=== PATIENT | female | born 1965 | race American Indian/Alaskan Native ===

== ENCOUNTER 2016-11-08 18:03 | Emergency (ER) | payer SELFPAY ==
[2016-11-08] MEDS ORDERED: DECADRON ONE (18:25)
[2016-11-08] MEDS ORDERED: PEPCID IV ONE (18:25)
[2016-11-08] MEDS: PEPCID IV ONE (18:35)
[2016-11-08] MEDS: DECADRON IV ONE (18:35)
[2016-11-08 18:39] VITALS: BP 139/99
--- NOTE | 2016-11-08 19:32 | Emergency Department Report ---
ED General Adult HPI - General Chief complaint: Allergic Reaction Stated complaint: ALLERGIC REACTION Time Seen by Provider: 11/08/16 18:06 Source: patient Mode of arrival: Ambulatory Limitations: No Limitations - History of Present Illness Initial comments: Patient is a 51-year-old female that is taking lisinopril. She noted some swelling of lip. She took a selfie photograph which she showed me on a cell phone. This showed upper lip swelling which was mild to moderate only. She stated that she felt anxious and was afraid her throat will close off. She came to the emergency department. She actually had no dyspnea. She stated that her blood pressure went up. However on my encounter her blood pressure was slightly elevated only. She denies any other symptoms. She denies swelling of her neck or the back of her throat. She had no wheezing. -: hour(s) Location: mouth (upper lip only) Severity scale (0 -10): 0 Consistency: constant Improves with: none Worsens with: none Associated Symptoms: denies other symptoms Treatments Prior to Arrival: none - Related Data Home Medications Medication Instructions Recorded Confirmed Last Taken Cetirizine HCl [24Hour Allergy] 10 mg PO DAILY 11/08/16 11/08/16 11/08/16 Levothyroxine [Synthroid] 112 mcg PO QAM 11/08/16 11/08/16 11/08/16 Metformin HCl [Glucophage] 500 mg PO DAILY 11/08/16 11/08/16 11/08/16 Previous Rx's Medication Instructions Recorded Last Taken Type amLODIPine [Norvasc] 5 mg PO DAILY #30 tab 11/08/16 Unknown Rx Allergies Allergy/AdvReac Type Severity Reaction Status Date / Time lisinopril Allergy Angioedema Verified 11/08/16 18:09 nut - unspecified Allergy Unknown Verified 11/08/16 18:09 ED Review of Systems ROS: Stated complaint: ALLERGIC REACTION Other details as noted in HPI Constitutional: denies: chills, fever Eyes: denies: eye pain, eye discharge, vision change ENT: denies: ear pain, throat pain Respiratory: denies: cough, shortness of breath, wheezing Cardiovascular: denies: chest pain, palpitations Endocrine: no symptoms reported Gastrointestinal: denies: abdominal pain, nausea, diarrhea Genitourinary: denies: urgency, dysuria, discharge Musculoskeletal: denies: back pain, joint swelling, arthralgia Skin: denies: rash, lesions Neurological: denies: headache, weakness, paresthesias Psychiatric: denies: anxiety, depression Hematological/Lymphatic: denies: easy bleeding, easy bruising ED Past Medical Hx - Past Medical History Previous Medical History?: Yes Hx Hypertension: Yes Hx of Cancer: Yes (breast, no active tx) - Surgical History Past Surgical History?: Yes Hx Cholecystectomy: Yes Additional Surgical History: hysterectomy. lump removed from left breast. tonsillectomy - Social History Smoking Status: Current Every Day Smoker Substance Use Type: Alcohol, Marijuana - Medications Home Medications: Home Medications Medication Instructions Recorded Confirmed Last Taken Type Cetirizine HCl [24Hour Allergy] 10 mg PO DAILY 11/08/16 11/08/16 11/08/16 History Levothyroxine [Synthroid] 112 mcg PO QAM 11/08/16 11/08/16 11/08/16 History Metformin HCl [Glucophage] 500 mg PO DAILY 11/08/16 11/08/16 11/08/16 History amLODIPine [Norvasc] 5 mg PO DAILY #30 tab 11/08/16 Unknown Rx ED Physical Exam - General Limitations: No Limitations General appearance: alert, in no apparent distress - Head Head exam: Present: atraumatic, normocephalic - Eye Eye exam: Present: normal appearance. Absent: scleral icterus - ENT ENT exam: Present: mucous membranes moist, other (1+ upper lip swelling. No swelling of the tongue or the pharynx. Anterior Jessica is clear well visualized.) - Neck Neck exam: Present: normal inspection, other (there is no submandibular/neck edema). Absent: tenderness, meningismus - Respiratory Respiratory exam: Present: normal lung sounds bilaterally. Absent: respiratory distress - Cardiovascular Cardiovascular Exam: Present: regular rate, normal rhythm. Absent: systolic murmur, diastolic murmur, rubs, gallop - GI/Abdominal GI/Abdominal exam: Present: soft, normal bowel sounds. Absent: distended, tenderness, guarding, rebound, rigid - Extremities Exam Extremities exam: Present: normal inspection - Back Exam Back exam: Present: normal inspection - Neurological Exam Neurological exam: Present: alert, oriented X3, CN II-XII intact. Absent: motor sensory deficit - Psychiatric Psychiatric exam: Present: normal affect, normal mood - Skin Skin exam: Present: warm, dry, intact, normal color. Absent: rash ED Course Vital Signs 11/08/16 11/08/16 18:09 18:38 Temperature 98.3 F 98.3 F Pulse Rate 69 60 Respiratory 20 16 Rate Blood Pressure 146/86 Blood Pressure 139/99 [Left] O2 Sat by Pulse 96 98 Oximetry - Reevaluation(s) Reevaluation #1: Patient had taken 2 Benadryl on her own. She was given Pepcid and Decadron. She was observed and had no progression. She will be taken off lisinopril and placed on amlodipine. She is appropriate for outpatient disposition. 11/08/16 19:30 11/08/16 19:32 Critical care attestation.: If time is entered above; I have spent that time in minutes in the direct care of this critically ill patient, excluding procedure time. ED Disposition Clinical Impression: Angioedema of lips Qualifiers: Encounter type: initial encounter Qualified Code(s): T78.3XXA - Angioneurotic edema, initial encounter Disposition: DC-01 TO HOME OR SELFCARE Is pt being admited?: No Does the pt Need Aspirin: No Condition: Stable Instructions: Angioedema (ED) Additional Instructions: Stop Lisinopril and do not take it in the future. Rx amlodipine fear blood pressure. Continue Pepcid which is a medicine [id number] 20 mg twice a day. Benadryl 50 mg every 6 hours while you have swelling. Return to the emergency department any worsening swelling or acute change/breathing difficulty. Prescriptions: amLODIPine [Norvasc] 5 mg PO DAILY #30 tab Referrals: PRIMARY CARE, [Primary Care Provider] - 3-5 Days Time of Disposition: 19:34
== END 2016-11-08 20:10 | disposition home or self-care (01) ==
LOC: ED 18:03
DX: T78.3XXA Angioneurotic edema, initial encounter (principal); I10 Essential (primary) hypertension; C50.919 Malignant neoplasm of unspecified site of unspecified female breast; F17.200 Nicotine dependence, unspecified, uncomplicated; F12.10 Cannabis abuse, uncomplicated; Z88.8 Allergy status to other drugs, medicaments and biological substances
CPT/HCPCS: 96374; 99282; J1100